=== PATIENT | female | born 1995 | race Caucasian/White ===

== ENCOUNTER 2018-01-14 18:10 | Emergency (ER) | payer OTHER ==
[~2018-01-14] VITALS: Ht 157.5 cm; Wt 107.4 kg
[~2018-01-14 18:10] MED LIST: ACET-1256 PO; IBUP-1428 PO
[2018-01-14 18:31] VITALS: TEMP 36.8; Ht 157.5 cm; Wt 107.4 kg
[2018-01-14] MEDS: SODIUM CHLORIDE 0.9% 1000ML 1,000 ML IV STA (20:45)
[2018-01-14] MEDS: MoRPHine SULFATE 4 MG/ML 1 ML CARP\\VIAL IV STA (21:05)
[2018-01-14] MEDS: ONDANSETRON INJ 2 MG/ML 2 ML VIAL IV STA (21:05)
[2018-01-14 21:22] LABS: BASO % 0.2 %; BASO ABS # 0.03 K/uL (0-0.2); EOS % 0.3 %; EOS ABS # 0.05 K/uL (0-0.5); HEMATOCRIT 38.4 % (37-47); HEMOGLOBIN 12.9 g/dL (12.0-16.0); IG# 0.08 K/uL (0.00-0.02); LYMPH % 15.1 %; LYMPH ABS # 2.62 K/uL (1.2-3.4); MEAN CELL VOLUME 82.4 fL (80-100); MEAN CORPUSCULAR HEMOGLOBIN 27.7 pg (25-34); MEAN CORPUSCULAR HGB CONC 33.6 g/dl (32-36); MEAN PLATELET VOLUME 9.6 fL (7.4-10.4); MONO % 4.3 %; MONO ABS # 0.74 K/uL (0.11-0.59); NEUT % 79.6 %; NEUT ABS # 13.87 K/uL (1.4-6.5); PLATELET COUNT 330 K/uL (130-400); RED CELL DISTRIBUTION WIDTH CV 13.2 % (11.5-14.5); RED CELL DISTRIBUTION WIDTH SD 39.7 fL (36.4-46.3); WHITE BLOOD COUNT 17.39 K/uL (4.8-10.8)
--- NOTE | 2018-01-14 21:23 | DIAGNOSTIC IMAGING REPORT ---
CT HEAD WITHOUT CONTRAST (CT) CLINICAL HISTORY: Headache and blurred vision COMPARISON STUDY: 01/26/2016 TECHNIQUE: Axial CT of the brain is performed from the vertex to the skull base. IV contrast was not administered for this examination. A dose lowering technique was utilized adhering to the principles of ALARA. CT DOSE: 537.48 mGy.cm FINDINGS: No intra or extra-axial mass lesions are visualized. There is no CT evidence of acute cortical infarction. There is no evidence of midline shift. There is no acute hemorrhage. No calvarial fractures are visualized. There are stable basal ganglia hypodensities likely representing prominent CSF spaces There is no evidence of pathologic ventricular dilatation. There is no evidence of acute sinusitis IMPRESSION: No acute intracranial findings Electronically signed by: Efrain Sosa M.D. 01/14/2018 9:21 PM Dictated Date/Time: 01/14/2018 9:20 PM
[2018-01-14 21:39] LABS: ALBUMIN 4.1 gm/dl (3.4-5.0); ALT/SGPT 27 U/L (12-78); AST/SGOT 11 U/L (15-37); BLOOD UREA NITROGEN 14 mg/dl (7-18); CALCIUM 9.4 mg/dl (8.5-10.1); CARBON DIOXIDE 29 mmol/L (21-32); CREATININE 0.87 mg/dl (0.60-1.20); GLUCOSE 88 mg/dl (70-99); LIPASE 96 U/L (73-393); POTASSIUM 3.9 mmol/L (3.5-5.1); SODIUM 136 mmol/L (136-145)
[2018-01-14] MEDS ORDERED: IBUP-1277 PO (21:41)
[2018-01-14 21:42] LABS: ALKALINE PHOSPHATASE 126 U/L (45-117); TOTAL PROTEIN 8.4 gm/dl (6.4-8.2)
[2018-01-14] MEDS ORDERED: GADAVIST IV PRN (22:30)
--- NOTE | 2018-01-14 22:32 | DIAGNOSTIC IMAGING REPORT ---
MRI OF THE BRAIN WITHOUT AND WITH IV CONTRAST CLINICAL HISTORY: Blurry vision. History of multiple sclerosis. Headache. Nausea. COMPARISON STUDY: CT scan dated January 14, 2018, MRI the brain dated 02/04/2016 TECHNIQUE: MRI of the brain was performed from the vertex to the skull base utilizing various T1 and T2 weighted sequences. Following the IV administration of 10.5 mL of Gadavist contrast, additional enhanced images were obtained. FINDINGS: Sagittal T1, axial diffusion, proton density and T2 weighted axial, coronal FLAIR, and pre and post axial T1-weighted images were acquired. These were supplemented with post gadolinium coronal T1 weighted images. No intra or extra-axial mass lesions are visualized. Axial diffusion-weighted images reveal no evidence of acute or subacute infarction. There is no evidence of ventricular dilatation. Proton density T2-weighted and FLAIR images reveal no significant intraparenchymal signal abnormalities. There are prominent CSF spaces in both basal ganglia regions There are no abnormal flow voids. There is no evidence of pathologic enhancement. IMPRESSION: Normal MRI of the brain Electronically signed by: Efrain oSsa M.D. 01/14/2018 10:31 PM Dictated Date/Time: 01/14/2018 10:29 PM
[2018-01-14] MEDS: METHYLPREDNISOLONE IV 1,000 MG in DEXTROSE 5% 250ML 250 ML IV SCH (22:52)
[2018-01-15 00:01] VITALS: BP 118/70; PULSE 71; O2SAT 95
--- NOTE | 2018-01-15 01:00 | EMERGENCY ROOM VISIT NOTE ---
History Report prepared by Jesus: Louise Saba Under the Supervision of: Dr. Radu Lopez D.O. First contact with patient: 20:08 Chief Complaint: NEURO SYMPTOMS Stated Complaint: MS FLAKE UP, LOSS OF VISION IN EYES, NAUSEA Nursing Triage Summary: Patient states "I am having an MS flare up, I can not see out of right eye and my left eye is loosing color. I was seen at the eye doctor yesterday and said I have optic neuritis" History of Present Illness The patient is a 22 year old female who presents to the Emergency Room with complaints of persistent blurry vision starting 1 week ago. The vision in her right eye is blurry and she is cannot see color. Her left eye vision is also blurry. The patient has a history of MS. She was seen by an eye doctor and was told that she has optic neuritis. She has had a headache which started 8 days ago. The headache is located around her eyes and has been constant. The blurry vision started after the headache. She denies any fever, neck pain, chest pain, abdominal pain, cough, rhinorrhea, weakness, or numbness. She has a history of viral meningitis. Source of History: patient Onset: 1 week ago Position: eye (bilateral) Quality: other (blurry vision) Timing: other (persistent) Associated Symptoms: + headache, No fevers, No cough, No neck pain, No chest pain, No abdominal pain, No weakness, No numbness Review of Systems See HPI for pertinent positives & negatives. A total of 10 systems reviewed and were otherwise negative. Past Medical & Surgical Medical Problems: (1) 29 weeks gestation of (2) Abdominal cramping (3) Acute bronchitis (4) Back pain complicating (5) Bronchitis (6) Crohn's disease (7) Decreased movement (8) Dental caries (9) Gestational hypertension w/o significant proteinuria in 3rd trimester (10) Hypokalemia (11) Influenza A (12) Influenza A with pneumonia (13) Irregular contractions (14) Migraine headache (15) Pain, dental (16) (17) Rheumatoid arthritis (18) URI (upper respiratory infection) (19) UTI (urinary tract infection) (20) Vaginal discharge, gestational Surgical Problems: (1) S/P tonsillectomy and adenoidectomy Family History FH: cancer FH: hypertension FH: lung disease Social History Smoking Status: Never Smoker Alcohol Use: none Drug Use: none Marital Status: single Occupation Status: student Current/Historical Medications Scheduled PRN Acetaminophen (Tylenol), 1,000 MG PO Q6H PRN for Pain or Fever Ibuprofen (Advil), 400-600 MG PO Q6H PRN for Pain or Fever Allergies Coded Allergies: Sumatriptan (Unverified Allergy, Intermediate, VOMITTING/ FEEL WIERD, ) Penicillins (Verified Allergy, Mild, ANAPHYLAXIS, 09/11/16) Clindamycin (Unverified Adverse Reaction, Intermediate, RASH, 09/11/16) Physical Exam Vital Signs Date Time Temp Pulse Resp B/P (MAP) Pulse Ox O2 Delivery O2 Flow Rate FiO2 01/15/18 00:01 71 18 118/70 95 01/14/18 22:51 79 18 124/79 96 Room Air 01/14/18 20:42 84 18 145/92 97 Room Air 01/14/18 18:31 36.8 84 16 148/86 97 Room Air Physical Exam GENERAL: Sitting up in bed, alert, well appearing, well nourished, no distress, non-toxic EYE EXAM: normal conjunctiva. PERRL and EOM's intact. OROPHARYNX: no exudate, no erythema, lips, buccal mucosa, and tongue normal and mucous membranes are moist NECK: supple, no nuchal rigidity, no adenopathy, non-tender LUNGS: Clear to auscultation. Normal chest wall mechanics HEART: no murmurs, S1 normal and S2 normal ABDOMEN: abdomen soft, non-tender, normo-active bowel sounds, no masses, no rebound or guarding. BACK: Back is symmetrical on inspection and there is no deformity, no midline tenderness, no CVA tenderness. SKIN: no rashes and no bruising UPPER EXTREMITIES: upper extremities are grossly normal. LOWER EXTREMITIES: No pitting edema. NEURO EXAM: Normal sensorium, cranial nerves II-XII intact, normal speech, no weakness of arms, no weakness of legs. No drift. Finger to nose intact. Gross sensation intact. Medical Decision & Procedures ER Provider Diagnostic Interpretation: Radiology results as stated below per my review and the radiologist's interpretation: CT HEAD WITHOUT CONTRAST (CT) CLINICAL HISTORY: Headache and blurred vision COMPARISON STUDY: 01/26/2016 TECHNIQUE: Axial CT of the brain is performed from the vertex to the skull base. IV contrast was not administered for this examination. A dose lowering technique was utilized adhering to the principles of ALARA. CT DOSE: 537.48 mGy.cm FINDINGS: No intra or extra-axial mass lesions are visualized. There is no CT evidence of acute cortical infarction. There is no evidence of midline shift. There is no acute hemorrhage. No calvarial fractures are visualized. There are stable basal ganglia hypodensities likely representing prominent CSF spaces There is no evidence of pathologic ventricular dilatation. There is no evidence of acute sinusitis IMPRESSION: No acute intracranial findings Electronically signed by: Efrain Sosa M.D. 01/14/2018 9:21 PM Dictated Date/Time: 01/14/2018 9:20 PM MRI OF THE BRAIN WITHOUT AND WITH IV CONTRAST CLINICAL HISTORY: Blurry vision. History of multiple sclerosis. Headache. Nausea. COMPARISON STUDY: CT scan dated January 14, 2018, MRI the brain dated 02/04/2016 TECHNIQUE: MRI of the brain was performed from the vertex to the skull base utilizing various T1 and T2 weighted sequences. Following the IV administration of 10.5 mL of Gadavist contrast, additional enhanced images were obtained. FINDINGS: Sagittal T1, axial diffusion, proton density and T2 weighted axial, coronal FLAIR, and pre and post axial T1-weighted images were acquired. These were supplemented with post gadolinium coronal T1 weighted images. No intra or extra-axial mass lesions are visualized. Axial diffusion-weighted images reveal no evidence of acute or subacute infarction. There is no evidence of ventricular dilatation. Proton density T2-weighted and FLAIR images reveal no significant intraparenchymal signal abnormalities. There are prominent CSF spaces in both basal ganglia regions There are no abnormal flow voids. There is no evidence of pathologic enhancement. IMPRESSION: Normal MRI of the brain Electronically signed by: Efrain Sosa M.D. 01/14/2018 10:31 PM Dictated Date/Time: 01/14/2018 10:29 PM Laboratory Results 01/14/18 20:45 Red Blood Count 4.66, Mean Corpuscular Volume 82.4, Mean Corpuscular Hemoglobin 27.7, Mean Corpuscular Hemoglobin Concent 33.6, Mean Platelet Volume 9.6, Neutrophils (%) (Auto) 79.6, Lymphocytes (%) (Auto) 15.1, Monocytes (%) (Auto) 4.3, Eosinophils (%) (Auto) 0.3, Basophils (%) (Auto) 0.2, Neutrophils # (Auto) 13.87, Lymphocytes # (Auto) 2.62, Monocytes # (Auto) 0.74, Eosinophils # (Auto) 0.05, Basophils # (Auto) 0.03 01/14/18 20:45 Test 01/14/18 00:00 01/14/18 20:45 01/14/18 22:57 Urine Test NEG (NEG) White Blood Count 17.39 K/uL (4.8-10.8) Red Blood Count 4.66 M/uL (4.2-5.4) Hemoglobin 12.9 g/dL (12.0-16.0) Hematocrit 38.4 % (37-47) Mean Corpuscular Volume 82.4 fL (80-100) Mean Corpuscular Hemoglobin 27.7 pg (25-34) Mean Corpuscular Hemoglobin Concent 33.6 g/dl (32-36) Platelet Count 330 K/uL (130-400) Mean Platelet Volume 9.6 fL (7.4-10.4) Neutrophils (%) (Auto) 79.6 % Lymphocytes (%) (Auto) 15.1 % Monocytes (%) (Auto) 4.3 % Eosinophils (%) (Auto) 0.3 % Basophils (%) (Auto) 0.2 % Neutrophils # (Auto) 13.87 K/uL (1.4-6.5) Lymphocytes # (Auto) 2.62 K/uL (1.2-3.4) Monocytes # (Auto) 0.74 K/uL (0.11-0.59) Eosinophils # (Auto) 0.05 K/uL (0-0.5) Basophils # (Auto) 0.03 K/uL (0-0.2) RDW Standard Deviation 39.7 fL (36.4-46.3) RDW Coefficient of Variation 13.2 % (11.5-14.5) Immature Granulocyte % (Auto) 0.5 % Immature Granulocyte # (Auto) 0.08 K/uL (0.00-0.02) Anion Gap 5.0 mmol/L (3-11) Est Creatinine Clear Calc Drug Dose 115.0 ml/min Estimated GFR () 108.1 Estimated GFR (Non- 93.2 BUN/Creatinine Ratio 16.4 (10-20) Calcium Level 9.4 mg/dl (8.5-10.1) Total Bilirubin 0.3 mg/dl (0.2-1) Direct Bilirubin < 0.1 mg/dl (0-0.2) Aspartate Amino Transf (AST/SGOT) 11 U/L (15-37) Alanine Aminotransferase (ALT/SGPT) 27 U/L (12-78) Alkaline Phosphatase 126 U/L (45-117) Total Protein 8.4 gm/dl (6.4-8.2) Albumin 4.1 gm/dl (3.4-5.0) Lipase 96 U/L (73-393) Urine Color YELLOW Urine Appearance CLOUDY (CLEAR) Urine pH 8.0 (4.5-7.5) Urine Specific [place] 1.028 (1.000-1.030) Urine Protein NEG (NEG) Urine Glucose (UA) NEG (NEG) Urine Ketones NEG (NEG) Urine Occult Blood NEG (NEG) Urine Nitrite NEG (NEG) Urine Bilirubin NEG (NEG) Urine Urobilinogen NEG (NEG) Urine Leukocyte Esterase NEG (NEG) Urine WBC (Auto) 1-5 /hpf (0-5) Urine RBC (Auto) 10-30 /hpf (0-4) Urine Hyaline Casts (Auto) 1-5 /lpf (0-5) Urine Epithelial Cells (Auto) >30 /lpf (0-5) Urine Bacteria (Auto) 1+ (NEG) Urine Renal Epithelial Cells 0-5 /lpf (0-5) Laboratory results per my review. Medications Administered Medications (Trade) Dose Ordered Sig/Krystle Route Start Time Stop Time Status Last Admin Dose Admin Sodium Chloride 1,000 ml @ 999 mls/hr Q1H1M STAT IV 01/14/18 20:25 01/14/18 21:25 DC 01/14/18 20:45 999 MLS/HR Ondansetron HCl (Zofran Inj) 4 mg NOW STAT IV 01/14/18 20:55 01/14/18 20:56 DC 01/14/18 21:05 4 MG Morphine Sulfate (MoRPHine SULFATE INJ) 4 mg NOW STAT IV 01/14/18 20:55 01/14/18 20:56 DC 01/14/18 21:05 4 MG Methylprednisolone Sodium Succinate 1000 mg/Dextrose 266 ml @ 250 mls/hr ONE IV 01/14/18 21:30 01/15/18 00:38 DC 01/14/18 22:52 250 MLS/HR ED Course ED COURSE: Vital signs were reviewed and showed normal vitals. The patients medical record was reviewed The above diagnostic studies were performed and reviewed. ED treatments and interventions as stated above. 2015: The patient was evaluated in room B5. A complete history and physical examination was performed. 2024: NSS 1000 ml @ 999 mls/hr IV. 2054: Morphine Sulfate 4 mg IV, Zofran Inj 4 mg IV. 2109: I discussed the patient's case with Dr. Banerjee, [facility] neurology. He recommends 1 gm of Solu-Medrol. He agrees with MRI and follow up in the office in 24 hours. 2129: Methylprednisolone Sodium Succinate 1000 mg/Dextrose 266 ml @ 250 mls/hr IV. 2134: I reevaluated the patient. I updated her on the plan. 2243: I spoke with Dr. Banerjee again. He will see the patient in the office within 24 hours to reevaluate. 2323: Upon reevaluation, the patient's vision has improved. I discussed my findings with the patient and she understands and agrees with the treatment plan. Based on the patients age, coexisting illnesses, exam and lab findings the decision to treat as an outpatient was made. The patient remained stable while under my care. The patient appeared well at the time of discharge. Medical Decision Differential Diagnosis includes but is not limited to headache, tension headache , cluster headache, migraine, subarachnoid hemorrhage, meningitis, mass, central venous thrombus, concussion, trauma and epidural/subdural hemorrhage. Patient is a 22-year-old female admits to past medical history of meningitis and MS who presents to ER for blurry vision out of her right and left eye. Patient was referred in by his eye physician who diagnosed her with optic neuritis. She was placed on steroids. She does have a mild leukocytosis of 17, 000 which I favor secondary to steroids. BMP along with LFTs, bilirubin and lipase is unremarkable. UA was negative. was negative. CT head was negative. I discussed with her neurologist who recommended a gram of steroids with a history of MS and following up as an outpatient. With her history, decided to obtain an MRI. This showed no lesions on the brain. I re-counseled that neurology. They recommended discharging and they will see her in the office tomorrow. Recommended LP but patient declined as she has had this multiple times before in the past and notes that she does not have meningitis. They will schedule appropriate steroid dosing tomorrow. I stressed importance of following up with neurology, ophthalmology and PCP. She was agreeable. Discussed with Pt concerning signs and symptoms to watch out for. Pt was instructed to follow up with their PCP and discussed with the patient their option to return to the ED at anytime for persistent or worsening symptoms. The appropriate anticipatory guidance and out-patient management, including indications for return to the emergency department, were explained at length to the patient and understood. Medication Reconcilliation Current Medication List: was personally reviewed by me Blood Pressure Screening Patient's blood pressure: Normal blood pressure Blood pressure disposition: Did not require urgent referral Consults Time Called: 2104 Consulting Physician: Dr. Banerjee, [facility] neurology Returned Call: 2109 I discussed the patient's case with him. He recommends 1 gm of Solu-Medrol. He agrees with MRI and follow up in the office in 24 hours. Impression Primary Impression: Optic neuritis Additional Impression: Blurry vision Scribe Attestation The scribe's documentation has been prepared under my direction and personally reviewed by me in its entirety. I confirm that the note above accurately reflects all work, treatment, procedures, and medical decision making performed by me. Departure Information Dispostion Home / Self-Care Referrals Natacha Hilliard .GARFIELD (PCP) Serge Banerjee M.D. Forms HOME CARE DOCUMENTATION FORM, IMPORTANT VISIT INFORMATION, WORK / SCHOOL INSTRUCTIONS Patient Instructions ED Blurred Vision, Hydrocortisone tablets, My [facility] Additional Instructions Please follow up with your primary care doctor with in the next 24 hours. Any worsening of your symptoms, please return to the ED immediately. This includes any fevers greater than 100.4, worsening pain, chest pain, shortness breath, persistent nausea, vomiting, unable to eat or drink, or any other concerning signs or symptoms from your standpoint. Please follow up with neurology and give their office a call tomorrow morning and inform them that you were seen in the ER and need to be seen in follow-up. Please also follow up with here eye doctor as you will need to be on steroids for your optic neuritis. Please continue them as previously prescribed for as given by neurology. You were given medications during this visit that will inhibit your ability to drive, operate machinery and work. Please do NOT drive, operate machinery, drink alcohol or work for the next 12hrs. Problem Qualifiers
== END 2018-01-15 00:02 | disposition home or self-care (01) ==
LOC: C.EDB 18:11
DX: H46.9 Unspecified optic neuritis (principal); H53.8 Other visual disturbances; K50.90 Crohn's disease, unspecified, without complications; Z88.0 Allergy status to penicillin

== ENCOUNTER → 2018-02-05 | Outpatient (CLI) | payer OTHER ==
[~2018-02-05] MED LIST changes: +ESCI1TAB10 PO; +GADAVIST IV PRN; +GLAT1INJ; +IBUP-1277 PO; -IBUP-1428 PO; +LISI-461 PO
--- NOTE | 2018-02-05 10:19 | DIAGNOSTIC IMAGING REPORT ---
CERVICAL AND THORACIC SPINE MRI WITH AND WITHOUT CONTRAST HISTORY: Neck and upper back pain. G35 Multiple sclerosis [id number] TECHNIQUE: Multiplanar multisequence MRI of the cervical spine was performed both before and after the use of intravenous contrast. COMPARISON STUDY: Brain MRI 01/14/2018. FINDINGS: No fracture or subluxation within the thoracic or lumbar spine. Disc spaces are preserved. Prevertebral soft tissues and the C1-C2 interval and the cervical spine are intact. No central canal or neural foraminal narrowing. A few small Schmorl's nodes seen within the lower thoracic spine. Paraspinal soft tissues are unremarkable. The cervical and thoracic spinal cord demonstrate a normal signal intensity. No abnormal enhancement within the cervical or thoracic spine. Focal flattening of the spinal cord at the level of the T4-5 disc space with anterior displacement. This is best seen on axial T2 image 11 of 33. IMPRESSION: 1. The cervical and thoracic spinal cord demonstrate a normal signal and intensity. No abnormal enhancement. 2. No central canal or neural foraminal narrowing. 3. Focal flattening and anterior displacement of the thoracic spinal cord at the level of the T4-5 disc space. This could be due to an intrathecal arachnoid cyst. Focal cord herniation could also have a similar appearance but is considered less likely given the normal-appearing disc space at this level. Electronically signed by: Art aHwkins M.D. 02/05/2018 10:18 AM Dictated Date/Time: 02/05/2018 10:06 AM
--- NOTE | 2018-02-05 10:19 | DIAGNOSTIC IMAGING REPORT ---
CERVICAL AND THORACIC SPINE MRI WITH AND WITHOUT CONTRAST HISTORY: Neck and upper back pain. G35 Multiple sclerosis [id number] TECHNIQUE: Multiplanar multisequence MRI of the cervical spine was performed both before and after the use of intravenous contrast. COMPARISON STUDY: Brain MRI 01/14/2018. FINDINGS: No fracture or subluxation within the thoracic or lumbar spine. Disc spaces are preserved. Prevertebral soft tissues and the C1-C2 interval and the cervical spine are intact. No central canal or neural foraminal narrowing. A few small Schmorl's nodes seen within the lower thoracic spine. Paraspinal soft tissues are unremarkable. The cervical and thoracic spinal cord demonstrate a normal signal intensity. No abnormal enhancement within the cervical or thoracic spine. Focal flattening of the spinal cord at the level of the T4-5 disc space with anterior displacement. This is best seen on axial T2 image 11 of 33. IMPRESSION: 1. The cervical and thoracic spinal cord demonstrate a normal signal and intensity. No abnormal enhancement. 2. No central canal or neural foraminal narrowing. 3. Focal flattening and anterior displacement of the thoracic spinal cord at the level of the T4-5 disc space. This could be due to an intrathecal arachnoid cyst. Focal cord herniation could also have a similar appearance but is considered less likely given the normal-appearing disc space at this level. Electronically signed by: Art Hawkins M.D. 02/05/2018 10:18 AM Dictated Date/Time: 02/05/2018 10:06 AM
== END | disposition home or self-care (01) ==
LOC: C.MRIBC 08:04
PROVIDERS: ATTEND Physician Assistant
DX: G35 Multiple sclerosis (principal); G95.9 Disease of spinal cord, unspecified

== ENCOUNTER 2019-11-12 04:52 | Inpatient (IN) ==
[~2019-11-12 04:52] MED LIST changes: -ACET-1256 PO; +CEFAZOLIN: ALLERGY NOTED TO ORDERED MEDICATION SCH; -ESCI1TAB10 PO; -GADAVIST IV PRN; -GLAT1INJ; -IBUP-1277 PO; -LISI-461 PO
[2019-11-12] MEDS ORDERED: SODIUM CHLORIDE 0.9% 250 ML IV PRN (04:56)
[2019-11-12 05:36] LABS: Basophils # (auto) 0.02 K/uL (0-0.2); Basophils % (auto) 0.1 %; Eosinophils # (auto) 0.24 K/uL (0-0.5); Eosinophils % (auto) 1.6 %; Hematocrit (blood only) 30.2 % (37-47); Hemoglobin 9.8 g/dL (12.0-16.0); Immature Granulocytes # (auto) 0.07 K/uL (0.00-0.02); Immature Granulocytes % (auto) 0.5 %; Lymphocytes # (auto) 2.74 K/uL (1.2-3.4); Lymphocytes % (auto) 18.7 %; Mean Corpuscular Hemoglobin 27.6 pg (25-34); Mean Corpuscular Volume 85.1 fL (80-100); Mean Platelet Volume 9.5 fL (7.4-10.4); Monocytes # (auto) 1.11 K/uL (0.11-0.59); Monocytes % (auto) 7.6 %; Neutrophils % (auto) 71.5 %; Platelet Count 295 K/uL (130-400); RDW Standard Deviation 43.1 fL (36.4-46.3); Red Blood Count 3.55 M/uL (4.2-5.4); White Blood Count 14.68 K/uL (4.8-10.8)
[2019-11-12 05:55] LABS: Mean Corpuscular Hgb Conc 32.5 g/dL (32-36)
[2019-11-12] MEDS ORDERED: LACTATED RINGER'S 1,000 ML IV SCH (06:00)
[2019-11-12] MEDS ORDERED: CEFAZOLIN 3,000 MG in DEXTROSE 5% 50 ML IV SCH (06:00)
[2019-11-12] MEDS ORDERED: CITRIC ACID/SODIUM CITRATE 15 ML UDC PO SCH (06:00)
[2019-11-12] MEDS ORDERED: CLINDAMYCIN 900 MG in DEXTROSE 5% 50 ML IV ONE (06:45)
[2019-11-12] MEDS ORDERED: OXYTOCIN 10 UNITS/ML VIAL ONE (06:59)
[2019-11-12] MEDS ORDERED: MoRPHine SULFATE PF 1 MG/ML 10 ML AMP/VIAL ONE (07:00)
[2019-11-12] MEDS ORDERED: fentaNYL citrate 100 MCG/2 ML VIAL ONE (07:00)
--- NOTE | 2019-11-12 07:00 | History & Physical Bridge Note ---
Date of Service November 12, 2019 History & Physical Bridge Note I have examined the patient, reviewed the History & Physical and in the interval since the performance of the History & Physical I have noted the following changes of clinical significance: no changes noted
--- NOTE | 2019-11-12 07:05 | Anesthesiology Consultation ---
Date of Service November 12, 2019 Assessment & Plan (1) Encounter for pre-operative examination: Chart Review Chart Review: Acceptable Risk for Surgery and Patient NOT seen in Pre Admission Testing Consults Requested none History Surgery Operation Date: 11/12/19 07:30 Proposed Procedures p Section in LD - Elinor Rock MD s Post Tubal Ligation Labor & Deliv - Elinor Rock MD Height/Weight Height: 5 ft 1 in Weight: 115.666 kg Allergies Allergy/AdvReac Type Severity Reaction Status Date / Time Penicillins Allergy Mild ANAPHYLAXIS Verified 11/11/19 10:34 butalbital [From Fioricet] Allergy Unknown CAUSES Verified 11/11/19 10:34 FORGETFULNESS sumatriptan AdvReac Intermediate VOMITING/ Verified 11/11/19 10:34 FELT WIERD Medications Home Medications Medication Instructions Recorded Confirmed Last Taken metoclopramide HCl [Reglan] 5 mg PO DAILY PRN 08/30/19 11/11/19 11/09/19 18:00 ondansetron 12 mg PO Q8H PRN 08/30/19 11/11/19 11/10/19 11:30 OneTouch Delica Plus Lancet 33 #200 ea NS 09/23/19 11/11/19 Unknown gauge acetone (urine) test #50 ea 09/23/19 11/11/19 Unknown blood sugar diagnostic #120 ea 09/23/19 11/11/19 Unknown PNV cmb#95-ferrous fumarate-FA 1 tab PO QAM 11/03/19 11/11/19 11/10/19 05:00 [] NPO Date Last Intake of Fluids: 11/11/19 Time Last Intake of Fluids: 21:00 Date Last Intake of Solids: 11/11/19 Time Last Intake of Solids: 19:00 Past Medical History Medical History GERD without esophagitis Hx of viral meningitis IBS (irritable bowel syndrome) Multiple sclerosis CURRENTLY HAVING NO ISSUES WITH ADL Nausea/vomiting in Optic neuritis (Acute) CURRENTLY NOT HAVING PROBLEMS Rheumatoid arthritis Vitamin D deficiency Past Family History Family History Mother Hypertension Myocardial infarction delivery Grandmother (Maternal) delivery Diabetes Uncle Benign polyp of large intestine Grandfather (Maternal) Benign polyp of large intestine Brother Kidney stones Past Surgical History Surgical History History of tonsillectomy and adenoidectomy Hx of section X1 Hx of colonoscopy [place] teeth removed Past Anesthesia History No Hx of Anesthesia Complications and No Family Hx of Anesthesia Complications History of PONV No Hx of PONV and No Hx of Motion Sickness Social History Smoking Status: Never smoker Do You Dip or Chew Tobacco: No Hx Alcohol Use: No Hx Substance Use: No Physical Exam Vital Signs Last Vital Signs Temp 36.7 C 11/12/19 05:02 Pulse 96 H 11/12/19 04:58 Resp 18 11/12/19 05:02 BP 147/78 H 11/12/19 04:58 Testing Laboratory Results 11/12/19 05:17 Blood Type O Positive 11/12/19 05:17 Antibody Screen NEGATIVE 11/12/19 05:17
[2019-11-12] MEDS ORDERED: DiphenhydrAMINE HCL 50 MG/ML VIAL IV PRN (07:47)
[2019-11-12] MEDS ORDERED: NALOXONE HCL 0.08 MG in SYRINGE 1.8 ML IV PRN (07:47)
[2019-11-12] MEDS ORDERED: NALOXONE HCL 1 MG in SODIUM CHLORIDE 0.9% 1000ML 1,000 ML IV PRN (07:47)
[2019-11-12] MEDS ORDERED: HYDROmorphone INJ 0.5 MG/0.5 ML SYR IV PRN (07:47)
[2019-11-12] MEDS ORDERED: ONDANSETRON INJ 2 MG/ML 2 ML VIAL IV PRN (07:47)
[2019-11-12] MEDS ORDERED: LACTATED RINGER'S 500 ML IV PRN (07:47)
[2019-11-12] MEDS ORDERED: NALOXONE HCL 0.4 MG/1 ML VIAL/CARP IV PRN (07:47)
[2019-11-12] MEDS ORDERED: NALBUPHINE HCL INJ 10 MG/ML AMP IV PRN (07:47)
[2019-11-12] MEDS ORDERED: ePHEDrine sulfate 50 MG/ML AMP IV PRN (07:47)
[2019-11-12] MEDS ORDERED: MoRPHine SULFATE 2 MG/ML CARP IV PRN (07:47)
[2019-11-12] MEDS ORDERED: MoRPHine SULFATE PF 1 MG/ML 10 ML AMP/VIAL INT SPINAL ONE (07:47)
[2019-11-12] MEDS ORDERED: PHENYLEPHRINE 100MCG/ML 5ML SYR ONE (07:59)
[2019-11-12] MEDS ORDERED: ONDANSETRON INJ 2 MG/ML 2 ML VIAL ONE (07:59)
[2019-11-12] MEDS ORDERED: NO NARCOTICS OR SEDATIVES SCH (08:00)
[2019-11-12] MEDS ORDERED: DC INTRASPINAL MORPHINE SCH (08:00)
[2019-11-12] MEDS ORDERED: SODIUM CHLORIDE 0.9% 1000ML 1,000 ML IV SCH (08:00)
[2019-11-12] MEDS ORDERED: DIPHTHERIA/TETANUS/PERTUSSIS 0.5 ML SYR/VIAL IM ONE (08:43)
[2019-11-12] MEDS ORDERED: SUPERCREAM 0.870% 15 GM JAR EXT PRN (08:43)
[2019-11-12] MEDS ORDERED: HYDROCORTISONE ACETATE 25 MG SUPP PR PRN (08:43)
[2019-11-12] MEDS ORDERED: BENZOCAINE 20% AER SPR 82.5 GM CAN EXT PRN (08:43)
[2019-11-12] MEDS ORDERED: SENNA 8.6 MG TAB PO PRN (08:43)
[2019-11-12] MEDS ORDERED: MAGNESIUM HYDROXIDE SUSP 30 ML UDC PO PRN (08:43)
[2019-11-12] MEDS ORDERED: OXYTOCIN 30 UNITS in LACTATED RINGER'S 1,000 ML IV SCH (08:45)
--- NOTE | 2019-11-12 08:51 | Anesthesiology Progress Note ---
Date of Service November 12, 2019 Anesthesia Post Procedure Vital Signs Vital Signs: Temp Pulse Resp BP Pulse Ox 11/12/19 08:49 99 H 99 11/12/19 08:48 93 H 137/63 11/12/19 08:46 87 186/79 H 11/12/19 08:45 100 H 195/83 H 11/12/19 08:44 100 H 99 11/12/19 05:02 36.7 C 18 11/12/19 04:58 96 H 147/78 H Transfer of Care Handoff Completed per policy Notes Mental Status: alert / awake / arousable and participated in evaluation Patient Amnestic to Procedure: No Nausea / Vomiting: adequately controlled Pain: adequately controlled Airway Patency, RR, SpO2: stable & adequate BP & HR: stable & adequate Hydration State: stable & adequate Neuraxial Anesthesia: was administered and sensory block is resolving Anesthetic Complications: no major complications apparent and Pt Satisfied with anesthetic care
[2019-11-12] MEDS: KETOROLAC 30 MG/ML VIAL IV PRN ×3 (09:37→21:26)
[2019-11-12 12:45] LABS: Appearance Urine Clear (Clear); Bilirubin Urine Negative (Negative); Blood Urine Negative (Negative); Color Urine Yellow; Glucose Urine UA Negative (Negative); Ketones Urine Negative (Negative); Leukocyte Esterase Urine Negative (Negative); Nitrite Urine Negative (Negative); Protein Urine Negative (Negative); Specific Gravity Urine 1.016 (1.000-1.030); Urobilinogen Urine Negative (Negative); pH Urine 6.5 (4.5-7.5)
[2019-11-12] MEDS: SIMETHICONE 80 MG CHEW PO SCH ×3 (12:51→21:28)
[2019-11-12] MEDS: LACTATED RINGER'S 1,000 ML IV SCH (19:26)
[2019-11-12] MEDS: DOCUSATE SODIUM 100 MG CAP PO SCH (21:26)
[2019-11-13] MEDS ORDERED: ONDANSETRON INJ 2 MG/ML 2 ML VIAL IV PRN (01:47)
[2019-11-13] MEDS ORDERED: KETOROLAC 30 MG/ML VIAL IV PRN (01:47)
[2019-11-13] MEDS ORDERED: MEPERIDINE HCL 50 MG/ML CARP IV PRN (01:47)
[2019-11-13] MEDS ORDERED: DiphenhydrAMINE HCL 50 MG/ML VIAL IV PRN (01:47)
[2019-11-13] MEDS ORDERED: PROMETHAZINE HCL 25 MG in SODIUM CHLORIDE 0.9% 50 ML IV PRN (01:47)
[2019-11-13] MEDS: OXYCODONE/ACETAMINOPHEN 5mg/325mg TAB PO PRN ×6 (02:26→23:35)
[2019-11-13] MEDS: IBUPROFEN 600 MG TAB PO PRN ×6 (02:27→23:34)
[2019-11-13] MEDS: LACTATED RINGER'S 1,000 ML IV SCH (02:31)
[2019-11-13] MEDS ORDERED: CALCIUM CARBONATE 500 MG CHEWABLE TAB PO PRN (04:16)
[2019-11-13 06:40] LABS: Basophils # (auto) 0.01 K/uL (0-0.2); Basophils % (auto) 0.1 %; Eosinophils # (auto) 0.23 K/uL (0-0.5); Eosinophils % (auto) 1.9 %; Hematocrit (blood only) 23.8 % (37-47); Hemoglobin 7.8 g/dL (12.0-16.0); Immature Granulocytes # (auto) 0.05 K/uL (0.00-0.02); Immature Granulocytes % (auto) 0.4 %; Lymphocytes # (auto) 1.99 K/uL (1.2-3.4); Lymphocytes % (auto) 16.4 %; Mean Corpuscular Hemoglobin 27.7 pg (25-34); Mean Corpuscular Hgb Conc 32.8 g/dL (32-36); Mean Corpuscular Volume 84.4 fL (80-100); Mean Platelet Volume 9.5 fL (7.4-10.4); Monocytes # (auto) 1.09 K/uL (0.11-0.59); Neutrophils # (auto) 8.76 K/uL (1.4-6.5); Neutrophils % (auto) 72.2 %; Platelet Count 243 K/uL (130-400); RDW Coefficient of Variation 14.1 % (11.5-14.5); RDW Standard Deviation 43.2 fL (36.4-46.3); Red Blood Count 2.82 M/uL (4.2-5.4); White Blood Count 12.13 K/uL (4.8-10.8)
[2019-11-13 07:06] LABS: ALC (manual) 1.26 K/uL (1.2-3.4); ANC (manual) 10.24 K/uL (1.4-6.5); Eosinophils # (manual) 0.21 K/uL (0-0.5); Eosinophils % (manual) 1.7 %; Lymphocytes # (manual) 1.26 K/uL (1.2-3.4); Lymphocytes % (manual) 10.4 %; Monocytes # (manual) 0.42 K/uL (0.11-0.59); Monocytes % (manual) 3.5 %; Neutrophils # (manual) 10.24 K/uL (1.4-6.5); Neutrophils % (manual) 84.4 %; RBC Morphology Unremarkable
--- NOTE | 2019-11-13 07:37 | Obstetrical Progress Note ---
Date of Service November 13, 2019 Assessment & Plan (1) Encounter for care and examination after delivery: 1) POD1 s/p LTCS with Bilateral Tubal Ligation. - no complaints today - d/c boswell - monitor urine output and discoloration - continue supportive care - encourage ambulation today as tolerated (2) Chronic hypertension affecting : (3) Diet controlled gestational diabetes mellitus in third trimester: (4) IUD : (5) Multiple sclerosis affecting : (6) Previous delivery affecting : (7) Crohn disease: (8) GERD without esophagitis: Supervising Physician Co-Signing Physician Notes Resident Physician Supervision Note: I was present with Dr. Yanes during the history and exam. I discussed the case with the resident and agree with the findings and plan as documented in the note. Any exceptions or clarifications are listed here: Sariah dressing in place, will follow for continued hematuria Documented By: Kendall Li Jr, MD, FACOG Subjective Doing well this morning. Boswell still in place this AM. Nursing noted small amount of blood in beginning of boswell tube with light pitts coloring throughout urine bag. Agreed to d/c boswell and monitor urine output and coloration. Pain controlled with medications. Review of Systems Constitutional: no fever, no chills and no fatigue Respiratory: no cough and no dyspnea Cardiovascular: no chest pain, no syncope, no edema and no calf pain Gastrointestinal: + cramping; no abdominal pain, no nausea, no vomiting, no constipation and no diarrhea/loose stools Genitourinary: no dysuria and no difficulty urinating Neurologic: no headache(s) Physical Exam 2 Constitutional: well developed and well nourished Respiratory: normal respiratory effort; no respiratory distress, no labored breathing and no cough Auscultation: no crackles, no rales, no rhonchi and no wheezes Cardiovascular: Rate/Rhythm: regular rate and regular rhythm Heart Sounds: no gallop, no murmur and no cardiac rub Extremities: no pedal edema Gastrointestinal (Abdomen): Inspection/Auscultation: + abdomen distended and normal bowel sounds Percussion/Palpation: abdomen soft; no guarding Musculoskeletal: no tenderness to palpation of calves bilaterally Skin: C/S incision covered by dry bandaging. Mildly tender to palpation superior to incision Genitourinary: Uterus small and firm, palpable in midline at level of umbilicus Results & Data Vital Signs (Past 12 Hours) Vital Signs Temp Pulse Resp BP Pulse Ox 11/13/19 03:45 36.8 C 97 H 20 131/78 97 11/13/19 02:00 20 99 11/13/19 00:54 20 99 11/13/19 00:00 36.8 C 99 H 20 115/69 99 11/12/19 22:25 16 98 11/12/19 21:25 16 97 11/12/19 20:25 16 98 Resident Activity Tracking Resident Involvement: Resident Care Provided Care Provided: Adult Hospital Medicine and OB Delivery
[2019-11-13] MEDS: PRENATAL VITAMIN 1 TAB PO SCH (08:19)
[2019-11-13] MEDS: DOCUSATE SODIUM 100 MG CAP PO SCH ×2 (08:19→21:58)
[2019-11-13] MEDS: SIMETHICONE 80 MG CHEW PO SCH ×4 (08:19→21:58)
[2019-11-13] MEDS: FERROUS SULFATE 325 MG TAB PO SCH (08:19)
--- NOTE | 2019-11-13 18:14 | Anesthesiology Progress Note ---
Date of Service November 13, 2019 Anesthesia Post Procedure Vital Signs Vital Signs: Temp Pulse Pulse Resp BP Pulse Ox 11/13/19 07:56 36.9 C 80 18 133/85 97 11/13/19 03:45 36.8 C 97 H 20 131/78 97 11/13/19 02:00 20 99 11/13/19 00:54 20 99 11/13/19 00:00 36.8 C 99 H 20 115/69 99 11/12/19 22:25 16 98 11/12/19 21:25 16 97 11/12/19 20:25 16 98 11/12/19 19:25 36.9 C 96 H 16 118/71 97 11/12/19 18:45 16 99 Pain Intensity Lower Abdomen: Pain Intensity: 4 Transfer of Care Handoff Completed per policy Notes Mental Status: alert / awake / arousable and participated in evaluation Nausea / Vomiting: adequately controlled Pain: adequately controlled Airway Patency, RR, SpO2: stable & adequate BP & HR: stable & adequate Hydration State: stable & adequate Neuraxial Anesthesia: was administered and sensory block resolved Anesthetic Complications: no major complications apparent and Pt Satisfied with anesthetic care
[2019-11-14] MEDS: OXYCODONE/ACETAMINOPHEN 5mg/325mg TAB PO PRN ×2 (03:38→08:06)
[2019-11-14] MEDS: IBUPROFEN 600 MG TAB PO PRN ×2 (03:38→08:04)
[2019-11-14 06:40] LABS: Hematocrit (blood only) 24.4 % (37-47); Hemoglobin 7.9 g/dL (12.0-16.0)
[2019-11-14] MEDS: SIMETHICONE 80 MG CHEW PO SCH (08:00)
[2019-11-14] MEDS: PRENATAL VITAMIN 1 TAB PO SCH (08:00)
[2019-11-14] MEDS: FERROUS SULFATE 325 MG TAB PO SCH (08:00)
[2019-11-14] MEDS: DOCUSATE SODIUM 100 MG CAP PO SCH (08:00)
--- NOTE | 2019-11-14 08:22 | Obstetrical Progress Note ---
Date of Service November 14, 2019 Assessment & Plan (1) Encounter for care and examination after delivery: Recovering well and wants D/C home today (2) Chronic hypertension affecting : BP mostly normal here, continue to follow with PCP (3) Diet controlled gestational diabetes mellitus in third trimester: 6wk pp GTT (4) IUD : XRay of abdomen today now that baby is delivered. IUD never located; unclear if fell out prior to . Subjective Ambulation: ambulating normally Voiding: no voiding problems Passing Gas:: Yes Diet Tolerance:: regular diet Lochia:: Small Feeding Type:: bottle feeding Current Pain Level(1-10): 0 Physical Exam Constitutional WD/WN, vitals as above Eyes PERRL, conjunctivae normal, anicteric sclerae ENMT external ear and nose normal, oropharynx normal Neck trachea midline, no thyromegaly Respiratory normal respiratory effort and able to speak in complete sentences; no respiratory distress, no labored breathing and does not use accessory muscles Cardiovascular Rate/Rhythm: regular rate and regular rhythm Extremities: no calf tenderness and no pedal edema Chest (Breasts) Breast: normal inspection of breasts Gastrointestinal (Abdomen) Inspection/Auscultation: abdomen normal to inspection and + abdominal surgical incision (LAMBERT in place, dry with one small <1" area of sanguinous staining lower L); abdomen not distended Musculoskeletal no cyanosis or clubbing, extremities motor strength 5/5 Skin no rashes, warm and dry Neurologic patellar DTR's 2+ bilat, sensation intact Psychiatric A+Ox3, euthymic affect Genitourinary Speculum/Bimanual Exam: uterus nontender OB Exam Abdomen: + fundal height (at umbilicus) Fundus: + firm Results & Data Vital Signs (Past 12 Hours) Vital Signs Temp Pulse Resp BP 11/13/19 23:20 98.6 F 91 H 16 117/72
--- NOTE | 2019-11-14 09:48 | XRay Report ---
KUB HISTORY: Intrauterine device confirmation Locate lost IUD COMPARISON: CT abdomen and pelvis 09/07/2019 FINDINGS: The bowel gas pattern is non-obstructive. Mild to moderate fecal retention. No opaque forei gn bodies identified. No intrauterine device identified. Catheter projects over the soft tissues of t he lower pelvis. There is no organomegaly. No renal calculi. No ureteral calculi. No pneumoperitoneu m or pneumatosis. No fracture. IMPRESSION: No intrauterine device identified. ACT 112: Negative or not required by law. The above report was generated using voice recognition software. It may contain grammatical, syntax o r spelling errors. Electronically signed by: Adonay Cardenas M.D. 11/14/2019 9:46 AM
--- NOTE | 2019-11-16 08:01 | Operative Report ---
PG Post Operative Report Pre & Post Diagnosis Operation Date: 11/12/19 07:30 Pre-Op Diagnosis: PREVIOUS SECTION, DESIRES STERILIZATION Post-Op Diagnosis: PREVIOUS SECTION, DESIRES STERILIZATION; LOW TRANSVERSE SECTION AND BILATERAL TUBAL LIGATION I identified the patient and participated in the time-out.: Yes Procedure Operation Date: 11/12/19 07:30 Actual Procedures p Section in LD; delivery of live female at 0807 - Elinor Rock MD s Bilateral Tubal Ligation Labor & Deliv - Elinor Rock MD Surgeon Elinor Rock MD Coil Winder Repair Christo Estimated Blood Loss 500 Findings Consistent with Post-Op Diagnosis Specimens Portion L and R tube Anesthesia Type Spinal Complications none Disposition Accompanied Patient To Recovery: Yes Disposition: L&D Description of Procedure The patient was brought to the operating room and placed on the table in the supine position with a leftward tilt, then prepped and draped in standard sterile fashion. A hard time out was taken prior to proceeding. A pfannensteil incision was created sharply and carried down to the fascia using bovie electrocautery. The fascia was nicked and then extended using palmer scissors. The edges of the fascia were grasped with Godfrey clamps and elevated, then sharply and bluntly dissected off the underlying rectus. The midline of the rectus was identified and bluntly . The peritoneum was bluntly entered, and this entry was extended using pressure from the surgeon's hands. The bladder retractor was placed and the lower uterine segment was examined and found to be well developed. A bladder flap was created and the retractor was replaced behind this flap to protect the bladder. A transverse lower uterine incision was then created, with final entry to the uterine cavity made in a blunt manner with the surgeon's finger. The amniotic fluid was encountered. The head was elevated to the incision and delivered using mild fundal pressure. The cord was doubly clamped and cut, then the vigorous infant was taken to the warmer for porcelain mixer care. The placenta was manually extracted, then the uterus was gently exteriorized from the maternal abdomen. The cavity was cleared of clot and debris using a dry lap sponge. The angles of the incision were identified with allis clamps, and the hysterotomy was then repaired in running locked fashion using 0-vicryl suture, followed by a second imbricating layer. The tubes and ovaries were examined and found to be normal bilaterally. Bilateral tubal sterilization was completed via modified Esau method with 0-Chromic suture, excising a knuckle of each fallopian tube. The posterior gutter was irrigated and cleared of clot and debris. The uterus was then gently re-internalized to the abdomen. Lateral gutters were cleared of clot and debris using a damp lap sponge, and a final exam of the hysterotomy revealed good hemostasis. The rectus muscles were allowed to reapproximate naturally. The angle of the fascia was grasped with a Godfrey clamp and the fascia was then repaired in running non-locked fashion with 1-vicryl suture. At the completion of repair, the fascia was examined and found to be free of any defect. The subcutaneous tissue was copiously irrigated and then reapproximated using 3-0 chromic. The skin was then closed using 4-0 monocryl in a running subcuticular fashion and a LAMBERT dressing was applied. The boswell was noted to be draining clear yellow urine as the patient was transferred back to her recovery room. I attest to the content of the Intraoperative Record and any orders documented therein. Any exceptions are noted below.
--- NOTE | 2019-11-16 08:04 | Discharge Summary ---
Date of Service November 16, 2019 Discharge Data Consultations 11/12/19 04:52 Consult Anesthesiology Stat 11/14/19 11:02 Consult Psychiatry Stat Procedures Performed Operation Date: 11/12/19 07:30 Actual Procedures p Section in LD; delivery of live female at 0807 - Elinor Rock MD s Post Tubal Ligation Labor & Deliv - Elinor Rock MD Hospital Course (1) Chronic hypertension affecting : Repeat with tubal done; see op report for details. Patient sent home after unremarkable course with LAMBERT dressing in place. Patient will remove dressing at home on POD#7 (Friday) and return to office for 6wk pp F/U. She is a known chronic hypertensive and will continue to f/u with PCP for management thereof. She is also to do a 6wk pp GTT. (2) Diet controlled gestational diabetes mellitus in third trimester:
== END 2019-11-14 12:30 | disposition home or self-care (01) | DRG 784 ==
LOC: 4S1 04:52 → EDSTATUS 07:30 → 4S2 11:45
PROC: M.PPTLD (2019-11-12 07:30)